=== PATIENT | male | born 1975 | race Caucasian/White ===

== ENCOUNTER 2023-12-27 18:24 | Emergency (ER) | payer OTHER, SELFPAY ==
[2023-12-27 18:24] VITALS: BMI 31.4
[2023-12-27 18:27] VITALS: BP 160/100
--- NOTE | 2023-12-27 19:22 | ED.GENMED ---
History of Present Illness
General
Chief Complaint: Head Injury
Source: patient
Exam Limitations: none
Time Seen by Provider: 12/27/23 18:42
Nursing documentation reviewed up to this point in time: agreed with
History of Present Illness
History of Present Illness:
48-year-old male limited past medical history slipped on tile few nights ago struck his head was knocked out has been having some headache nausea and vomiting initially, those symptoms have improved for the most part he still feels dizzy like the
room spinning, no neck pain no paresthesias no chest pain or shortness of breath no abdominal pain no blood thinners no alcohol
Past History
Past History
ED Past Medical History: None
ED Past Surgical History: None
Social History
Tobacco: Non-smoker
Alcohol: None
Drug: None
Personal:
Living: with family
Employment: Employed
Review of Systems
Review of Systems
All Other Systems: Not applicable
EENT: Reports no symptoms
Respiratory: Reports no symptoms; Denies trouble breathing
Cardiac: Reports no symptoms
ABD/GI: Reports vomiting (Nausea and vomiting initially none now)
Neurological: Reports dizzy and headache
Hematologic/Lymphatic: Reports no symptoms
Psychiatric: Reports no symptoms
Phy Exam
Physical Exam
Physical Exam:
Physical Exam
General: no apparent distress, not acutely ill
Neck: No midline posterior neck pain, full range of motion of the cervical spine no tongue
Heart: s1/s2 regular rate and rhythm, no murmur. equal radial pulses.
Lungs: no acute respiratory distress. clear bilaterally
Neuro: alert and oriented. no focal neurological deficits
Skin: no rash
Psychiatric: well kept. interactive and cooperative
Extremities:
Course
Orders/Labs/Results
Orders:
Orders
12/27/23 18:29
CT Head W/o Iv Contrast Urgent
Comment: + dizziness and nausea
Reason For Exam: hit back of head and passed out on Thursday
12/27/23 19:16
Ibuprofen [Motrin] 600 mg PO NOW STA
Ondansetron Orally Disint [Zofran Odt (Orally Disintegrating)] 4 mg PO NOW STA
Vital Signs
Initial and Last Documented VS:
Initial Vital Signs
Temp Pulse Resp BP Pulse Ox
98.8 F 71 16 160/100 98
12/27/23 18:27 12/27/23 18:27 12/27/23 18:27 12/27/23 18:27 12/27/23 18:27
Last Documented Vital Signs
Temp Pulse Resp BP Pulse Ox
98.8 F 71 16 160/100 98
12/27/23 18:27 12/27/23 18:27 12/27/23 18:27 12/27/23 18:27 12/27/23 18:27
MDM/Problems Addressed
Differential Diagnosis Includes:
Skull fracture concussion postconcussion syndrome subdural epidural no signs of C-spine injury by history and physical
MDM/Problems Addressed:
Head trauma
*Radiology
Radiology exam reviewed: radiology read reviewed
*Pulse Oximetry
Patient hypoxic: no
*Critical Care Note
Total Time (30-74mins, 75-104mins- exclusive of procedures): Not Applicable
Update Note
Update Note:
Update patient overall well-appearing nonfocal neurologic exam no midline neck pain suspect he suffered a concussion, CT of the head is noted reviewed with patient and family
ED Attending Note
-
Portions of this chart may have been created with voice recognition software.� Occasional wrong word or��sound alike� substitutions may have occurred due to the inherent limitations of voice recognition software.
Discharge Plan
Departure
Patient Disposition: Home (Routine Discharge)
Date of Disposition: 12/27/23
Time of Disposition: 19:25
Patient with high blood pressure during this ER visit?: No
Discharge Problem:
Concussion
Instructions: Concussion, Adult (DC)
Prescriptions:
New
ibuprofen 600 mg tablet
600 mg PO Q8H PRN (Reason: Pain) Qty: 20 0RF
ondansetron 4 mg tablet,disintegrating
4 mg PO Q8H PRN (Reason: nausea and vomiting) Qty: 10 0RF
Discharge Date and Time
Print Language: FRENCH
[2023-12-27] MEDS: ZOFRAN ODT (ORALLY DISINTEGRATING) 4 MG PO (19:31)
[2023-12-27] MEDS: MOTRIN 600 MG PO (19:31)
== END 2023-12-27 19:44 | disposition home or self-care (01) ==
LOC: EMR 18:24
PROVIDERS: EMERGENCY PHYSICIAN Emergency Medicine; FAMILY PHYSICIAN Internal Medicine
DX: S06.0XAA Concussion with loss of consciousness status unknown, initial encounter (principal); W22.8XXA Striking against or struck by other objects, initial encounter
CPT/HCPCS: 99284; 70450